=== PATIENT | male | born 1985 | race Caucasian/White ===

== ENCOUNTER 2023-03-13 20:58 | Emergency (ER) | payer OTHER, SELFPAY ==
[2023-03-13 21:10] VITALS: BP 111/60; PULSE 72; RESP 18; TEMP 36.8; O2SAT 96; BMI 33.2
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
[2023-03-13 21:30] LABS: Basophils % 0.4 %; Eosinophils # 0.2 10^3/uL (0.0-0.8); Eosinophils % 3.1 %; Hematocrit 40.8 % (42.0-52.0); Hemoglobin 13.7 g/dL (11.7-16.6); Lymphocytes # 1.7 10^3/uL (0.8-4.8); Lymphocytes % 22.7 %; Mean Corpuscular HGB Conc 33.6 g/dL (30.0-36.0); Mean Corpuscular Hemoglobin 30.6 pg (28.0-34.0); Mean Corpuscular Volume 91.1 fl (80-94); Mean Platelet Volume 10.1 fL (7.4-10.4); Monocytes # 0.5 10^3/uL (0.2-0.9); Monocytes % 6.3 %; Neutrophils # 5.15 10^3/uL (1.8-7.7); Neutrophils % 67.1 %; Nucleated Red Blood Cells % 0 %; Platelet Count 223 10^3/cmm (130-400); Red Blood Count 4.48 10^6/uL (4.1-5.3); Red Cell Distribution Width 12.5 % (12.1-15.1); White Blood Count 7.7 10^3/uL (4.0-10.0)
[2023-03-13 21:47] LABS: Alanine Aminotransferase 29 U/L (0-41); Albumin Level 4.4 g/dL (3.5-5.2); Alkaline Phosphatase 81 U/L (40-130); Anion Gap 15.3 (5-19); Aspartate Amino Transferase 22 U/L (0-40); Blood Urea Nitrogen 12 mg/dL (6-20); Calcium 8.9 mg/dL (8.5-10.5); Carbon Dioxide 23 mmol/L (22-29); Chloride 102 mmol/L (98-107); Globulin 2.4 g/dL (1.3-4.6); Glomerular Filtration Rate 67.8 mL/min (90-130); Glucose 108 mg/dL (65-115); Osmolality Calculated 284 mOsm/kg (285-295); Potassium 3.3 mmol/L (3.5-5.1); Sodium 137 mmol/L (136-145); Total Bilirubin 0.3 mg/dL (0.15-1.2); Total Protein 6.8 g/dL (6.6-8.7)
[2023-03-13 22:01] LABS: Lactate (Lactic Acid level) 2.2 mmol/L (0.5-2.2)
[2023-03-13] MEDS: iohexol 350 mg/mL 500 mL Btl (per mL) IV (22:24)
[2023-03-13] MEDS: sodium chloride 0.9% 1,000 ML 999 ML IV (22:30)
[2023-03-13] MEDS: morphine 4 mg/mL SDV 1 mL 2 MG IVP (22:30)
[2023-03-13 22:59] VITALS: BP 132/99; RESP 84; O2SAT 97
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
[2023-03-13 23:49] VITALS: BP 127/90; PULSE 74; RESP 20; O2SAT 97
[2023-03-14] MEDS: morphine 4 mg/mL SDV 1 mL 2 MG IVP (00:58)
[2023-03-14 01:20] VITALS: BP 114/73; PULSE 73; RESP 18; O2SAT 95
[2023-03-14] MEDS: HYDROmorphone 1 mg/mL INJ 1 mL 0.5 MG IVP (01:48)
[2023-03-14 01:49] VITALS: BP 115/73; PULSE 73; RESP 18; O2SAT 95
== END 2023-03-14 01:50 | disposition intermediate care facility (04) ==
PROVIDERS: Emergency Provider Emergency Medicine; Family Provider Family Medicine; PCP Family Medicine
DX: S37.061A Major laceration of right kidney, initial encounter (principal); V86.69XA Passenger of other special all-terrain or other off-road motor vehicle injured in nontraffic accident, initial encounter
CPT/HCPCS: 70450; 71260; 72125; 74177; 80053; 83605; 85025; 86850; 86900; 96361; 96374; 96375; 96376; 99285; 99291; J1170; J2270; J7030; Q9967

== ENCOUNTER 2023-09-23 10:14 | Outpatient (CLI) | payer OTHER, SELFPAY ==
[2023-09-23 10:25] LABS: Basophils % 0.2 %; Eosinophils # 0.1 10^3/uL (0.0-0.8); Eosinophils % 2.2 %; Hematocrit 31.2 % (37-53); Lymphocytes # 0.2 10^3/uL (0.8-4.8); Lymphocytes % 2.7 %; Mean Corpuscular Hemoglobin 33.7 pg (27-33); Mean Platelet Volume 9.8 fL (7.4-10.4); Monocytes # 0.4 10^3/uL (0.2-0.9); Monocytes % 6.9 %; Neutrophils # 5.22 10^3/uL (1.8-7.7); Neutrophils % 83.8 %; Nucleated Red Blood Cells % 0 %; Platelet Count 162 10^3/cmm (157-399); Red Blood Count 3.06 10^6/uL (3.85-5.65); Red Cell Distribution Width 15.9 % (12.1-15.1); White Blood Count 6.23 10^3/uL (3.29-11.43)
[2023-09-23 10:47] LABS: Albumin Level 4.4 g/dL (3.5-5.2); Blood Urea Nitrogen 20 mg/dL (6-20); Calcium 9.4 mg/dL (8.5-10.5); Carbon Dioxide 20 mmol/L (22-29); Chloride 109 mmol/L (98-107); Glomerular Filtration Rate 56.4 mL/min (90-130); Glucose 97 mg/dL (65-115); Magnesium 1.6 mg/dL (1.7-2.3); Phosphorus 1.4 mg/dL (2.5-4.5); Sodium 138 mmol/L (136-145)
[2023-09-23 11:02] LABS: Anion Gap 13.4 (5-19); Potassium 4.4 mmol/L (3.5-5.1)
== END 2023-09-23 10:15 | disposition home or self-care (01) ==
PROVIDERS: PCP Family Medicine; Visit Provider Transplant Surgery
DX: Z01.89 Encounter for other specified special examinations (principal)
CPT/HCPCS: 80069; 80197; 83735; 85025

== ENCOUNTER 2023-09-27 09:58 | Outpatient (CLI) | payer OTHER, SELFPAY ==
[2023-09-27 10:19] LABS: Basophils % 0.2 %; Eosinophils # 0.1 10^3/uL (0.0-0.8); Eosinophils % 0.8 %; Lymphocytes # 0.3 10^3/uL (0.8-4.8); Lymphocytes % 3.2 %; Mean Corpuscular HGB Conc 33.2 g/dL (30-55); Mean Corpuscular Hemoglobin 34.3 pg (27-33); Mean Corpuscular Volume 103.3 fl (82-101); Mean Platelet Volume 9.6 fL (7.4-10.4); Monocytes # 0.3 10^3/uL (0.2-0.9); Monocytes % 2.8 %; Neutrophils # 9.09 10^3/uL (1.8-7.7); Neutrophils % 89.6 %; Nucleated Red Blood Cells % 0 %; Platelet Count 223 10^3/cmm (157-399); Red Cell Distribution Width 16.1 % (12.1-15.1); White Blood Count 10.13 10^3/uL (3.29-11.43)
[2023-09-27 10:38] LABS: Albumin Level 4.3 g/dL (3.5-5.2); Anion Gap 15.6 (5-19); Blood Urea Nitrogen 19 mg/dL (6-20); Carbon Dioxide 17 mmol/L (22-29); Chloride 112 mmol/L (98-107); Glomerular Filtration Rate 56.4 mL/min (90-130); Glucose 117 mg/dL (65-115); Magnesium 1.3 mg/dL (1.7-2.3); Phosphorus 1.8 mg/dL (2.5-4.5); Potassium 4.6 mmol/L (3.5-5.1); Sodium 140 mmol/L (136-145)
[2023-09-27 10:39] LABS: Urine Creatinine 102 mg/dL (39-259); Urine Protein Random 13 mg/dL
[2023-09-27 10:40] LABS: UPRO/UCREAT Ratio 0.13 mg/mg CR
== END 2023-09-27 09:59 | disposition home or self-care (01) ==
LOC: LAB 10:00
PROVIDERS: PCP Family Medicine; Visit Provider Transplant Surgery
DX: Z01.89 Encounter for other specified special examinations (principal)
CPT/HCPCS: 80069; 80197; 82570; 83735; 84156; 85025

== ENCOUNTER 2023-10-01 17:27 | Outpatient (CLI) | payer OTHER, SELFPAY ==
[2023-09-30 10:05] LABS: Basophils % 0.2 %; Eosinophils # 0.1 10^3/uL (0.0-0.8); Eosinophils % 1.2 %; Hematocrit 32.5 % (37-53); Lymphocytes # 0.4 10^3/uL (0.8-4.8); Lymphocytes % 4.2 %; Mean Corpuscular HGB Conc 32.3 g/dL (30-55); Mean Corpuscular Hemoglobin 34.2 pg (27-33); Mean Corpuscular Volume 105.9 fl (82-101); Mean Platelet Volume 9.5 fL (7.4-10.4); Monocytes # 0.3 10^3/uL (0.2-0.9); Monocytes % 2.5 %; Neutrophils # 8.98 10^3/uL (1.8-7.7); Neutrophils % 89.4 %; Nucleated Red Blood Cells % 0 %; Platelet Count 217 10^3/cmm (157-399); Red Blood Count 3.07 10^6/uL (3.85-5.65); Red Cell Distribution Width 15.9 % (12.1-15.1); White Blood Count 10.04 10^3/uL (3.29-11.43)
[2023-09-30 10:30] LABS: Albumin Level 4.4 g/dL (3.5-5.2); Anion Gap 13.5 (5-19); Blood Urea Nitrogen 24 mg/dL (6-20); Calcium 9.1 mg/dL (8.5-10.5); Carbon Dioxide 21 mmol/L (22-29); Chloride 108 mmol/L (98-107); Glomerular Filtration Rate 61.5 mL/min (90-130); Glucose 93 mg/dL (65-115); Magnesium 1.2 mg/dL (1.7-2.3); Phosphorus 1.5 mg/dL (2.5-4.5); Potassium 4.5 mmol/L (3.5-5.1); Sodium 138 mmol/L (136-145)
== END 2023-10-01 17:28 | disposition home or self-care (01) ==
LOC: LAB 17:32
PROVIDERS: PCP Family Medicine; Visit Provider Transplant Surgery
DX: Z48.22 Encounter for aftercare following kidney transplant (principal)
CPT/HCPCS: 80069; 80197; 83735; 85025

== ENCOUNTER 2023-10-04 09:00 | Outpatient (CLI) | payer OTHER, SELFPAY ==
[2023-10-04 09:35] LABS: Basophils % 0.2 %; Eosinophils # 0.1 10^3/uL (0.0-0.8); Eosinophils % 0.9 %; Hematocrit 31.3 % (37-53); Lymphocytes # 0.3 10^3/uL (0.8-4.8); Lymphocytes % 5.9 %; Mean Corpuscular HGB Conc 31.9 g/dL (30-55); Mean Corpuscular Hemoglobin 33.6 pg (27-33); Mean Platelet Volume 9.7 fL (7.4-10.4); Monocytes # 0.1 10^3/uL (0.2-0.9); Monocytes % 2.3 %; Neutrophils # 4.88 10^3/uL (1.8-7.7); Nucleated Red Blood Cells % 0 %; Platelet Count 171 10^3/cmm (157-399); Red Blood Count 2.98 10^6/uL (3.85-5.65); Red Cell Distribution Width 15.5 % (12.1-15.1); White Blood Count 5.55 10^3/uL (3.29-11.43)
[2023-10-04 10:00] LABS: Albumin Level 4.4 g/dL (3.5-5.2); Anion Gap 14.6 (5-19); Blood Urea Nitrogen 19 mg/dL (6-20); Calcium 9.1 mg/dL (8.5-10.5); Carbon Dioxide 22 mmol/L (22-29); Chloride 111 mmol/L (98-107); Glomerular Filtration Rate 56.4 mL/min (90-130); Glucose 95 mg/dL (65-115); Magnesium 1.3 mg/dL (1.7-2.3); Phosphorus 2.8 mg/dL (2.5-4.5); Potassium 4.6 mmol/L (3.5-5.1); Sodium 143 mmol/L (136-145)
== END 2023-10-04 09:01 | disposition home or self-care (01) ==
LOC: LAB 12-13 09:46
PROVIDERS: PCP Family Medicine; Visit Provider Transplant Surgery
DX: Z48.22 Encounter for aftercare following kidney transplant (principal)
CPT/HCPCS: 80069; 80197; 83735; 85025

== ENCOUNTER 2023-10-08 09:16 | Outpatient (CLI) | payer OTHER, SELFPAY ==
[2023-10-08 09:40] LABS: Basophils % 0.2 %; Eosinophils # 0.1 10^3/uL (0.0-0.8); Eosinophils % 0.8 %; Hematocrit 31.8 % (37-53); Lymphocytes # 0.4 10^3/uL (0.8-4.8); Lymphocytes % 6.7 %; Mean Corpuscular HGB Conc 32.1 g/dL (30-55); Mean Corpuscular Hemoglobin 34.1 pg (27-33); Mean Corpuscular Volume 106.4 fl (82-101); Mean Platelet Volume 9.5 fL (7.4-10.4); Monocytes # 0.1 10^3/uL (0.2-0.9); Monocytes % 2.2 %; Neutrophils # 5.16 10^3/uL (1.8-7.7); Neutrophils % 86.7 %; Nucleated Red Blood Cells % 0 %; Platelet Count 150 10^3/cmm (157-399); Red Blood Count 2.99 10^6/uL (3.85-5.65); White Blood Count 5.95 10^3/uL (3.29-11.43)
[2023-10-08 10:00] LABS: Urine Creatinine 91 mg/dL (39-259); Urine Protein Random 11 mg/dL
[2023-10-08 10:01] LABS: UPRO/UCREAT Ratio 0.12 mg/mg CR
[2023-10-08 10:21] LABS: Albumin Level 4.3 g/dL (3.5-5.2); Anion Gap 13.6 (5-19); Blood Urea Nitrogen 19 mg/dL (6-20); Calcium 9.3 mg/dL (8.5-10.5); Carbon Dioxide 23 mmol/L (22-29); Chloride 108 mmol/L (98-107); Glomerular Filtration Rate 56.4 mL/min (90-130); Glucose 117 mg/dL (65-115); Magnesium 1.2 mg/dL (1.7-2.3); Phosphorus 2.2 mg/dL (2.5-4.5); Potassium 4.6 mmol/L (3.5-5.1); Sodium 140 mmol/L (136-145)
== END 2023-10-08 09:17 | disposition home or self-care (01) ==
LOC: LAB 09:17
PROVIDERS: PCP Family Medicine; Visit Provider Transplant Surgery
DX: Z48.22 Encounter for aftercare following kidney transplant (principal)
CPT/HCPCS: 80069; 80197; 82570; 83735; 84156; 85025

== ENCOUNTER 2023-10-11 09:04 | Outpatient (CLI) | payer OTHER, SELFPAY ==
[2023-10-11 09:15] LABS: Basophils % 0.4 %; Eosinophils % 0.8 %; Hematocrit 31.7 % (37-53); Lymphocytes # 0.3 10^3/uL (0.8-4.8); Lymphocytes % 5.8 %; Mean Corpuscular HGB Conc 33.1 g/dL (30-55); Mean Corpuscular Hemoglobin 34.4 pg (27-33); Mean Corpuscular Volume 103.9 fl (82-101); Mean Platelet Volume 9.7 fL (7.4-10.4); Monocytes # 0.1 10^3/uL (0.2-0.9); Monocytes % 2.4 %; Neutrophils # 4.62 10^3/uL (1.8-7.7); Neutrophils % 86.8 %; Nucleated Red Blood Cells % 0 %; Platelet Count 155 10^3/cmm (157-399); Red Blood Count 3.05 10^6/uL (3.85-5.65); Red Cell Distribution Width 14.5 % (12.1-15.1); White Blood Count 5.32 10^3/uL (3.29-11.43)
[2023-10-11 09:41] LABS: Albumin Level 4.5 g/dL (3.5-5.2); Anion Gap 13.7 (5-19); Blood Urea Nitrogen 30 mg/dL (6-20); Calcium 9.6 mg/dL (8.5-10.5); Carbon Dioxide 23 mmol/L (22-29); Chloride 110 mmol/L (98-107); Glomerular Filtration Rate 42.2 mL/min (90-130); Glucose 105 mg/dL (65-115); Magnesium 1.3 mg/dL (1.7-2.3); Phosphorus 2.4 mg/dL (2.5-4.5); Potassium 4.7 mmol/L (3.5-5.1); Sodium 142 mmol/L (136-145)
== END 2023-10-11 09:05 | disposition home or self-care (01) ==
LOC: LAB 09:04
PROVIDERS: PCP Family Medicine; Visit Provider Internal Medicine
DX: Z48.22 Encounter for aftercare following kidney transplant (principal)
CPT/HCPCS: 80069; 80197; 83735; 85025

== ENCOUNTER 2023-10-14 09:43 | Outpatient (CLI) | payer OTHER, SELFPAY ==
[2023-10-14 09:40] LABS: Basophils % 0.4 %; Eosinophils # 0.1 10^3/uL (0.0-0.8); Hematocrit 31.8 % (37-53); Lymphocytes # 0.3 10^3/uL (0.8-4.8); Lymphocytes % 6.6 %; Mean Corpuscular HGB Conc 32.4 g/dL (30-55); Mean Corpuscular Hemoglobin 34.4 pg (27-33); Mean Corpuscular Volume 106.4 fl (82-101); Mean Platelet Volume 9.9 fL (7.4-10.4); Monocytes # 0.2 10^3/uL (0.2-0.9); Monocytes % 3.5 %; Neutrophils # 4.11 10^3/uL (1.8-7.7); Neutrophils % 85.4 %; Nucleated Red Blood Cells % 0 %; Platelet Count 169 10^3/cmm (157-399); Red Blood Count 2.99 10^6/uL (3.85-5.65); Red Cell Distribution Width 14.1 % (12.1-15.1); White Blood Count 4.82 10^3/uL (3.29-11.43)
[2023-10-14 09:59] LABS: Albumin Level 4.4 g/dL (3.5-5.2); Anion Gap 12.6 (5-19); Blood Urea Nitrogen 26 mg/dL (6-20); Calcium 9.2 mg/dL (8.5-10.5); Carbon Dioxide 22 mmol/L (22-29); Chloride 112 mmol/L (98-107); Glomerular Filtration Rate 52.1 mL/min (90-130); Glucose 93 mg/dL (65-115); Magnesium 1.3 mg/dL (1.7-2.3); Phosphorus 1.3 mg/dL (2.5-4.5); Potassium 4.6 mmol/L (3.5-5.1); Sodium 142 mmol/L (136-145)
[2023-10-14 10:13] LABS: Urine Creatinine 64 mg/dL (39-259); Urine Protein Random 7 mg/dL
[2023-10-14 10:14] LABS: UPRO/UCREAT Ratio 0.11 mg/mg CR
== END 2023-10-14 09:44 | disposition home or self-care (01) ==
LOC: LAB 09:44
PROVIDERS: PCP Family Medicine; Visit Provider Transplant Surgery
DX: Z48.22 Encounter for aftercare following kidney transplant (principal)
CPT/HCPCS: 80069; 80197; 82570; 83735; 84156; 85025

== ENCOUNTER 2023-10-22 10:27 | Outpatient (CLI) | payer OTHER, SELFPAY ==
[2023-10-22 10:34] LABS: Basophils % 0.4 %; Eosinophils % 0.6 %; Hematocrit 33.8 % (37-53); Lymphocytes # 0.4 10^3/uL (0.8-4.8); Lymphocytes % 6.5 %; Mean Corpuscular HGB Conc 32.8 g/dL (30-55); Mean Corpuscular Hemoglobin 34.5 pg (27-33); Mean Platelet Volume 9.8 fL (7.4-10.4); Monocytes # 0.2 10^3/uL (0.2-0.9); Neutrophils # 4.61 10^3/uL (1.8-7.7); Neutrophils % 85.2 %; Nucleated Red Blood Cells % 0 %; Platelet Count 210 10^3/cmm (157-399); Red Blood Count 3.22 10^6/uL (3.85-5.65); Red Cell Distribution Width 13.1 % (12.1-15.1)
[2023-10-22 10:58] LABS: Albumin Level 4.5 g/dL (3.5-5.2); Anion Gap 13.4 (5-19); Blood Urea Nitrogen 23 mg/dL (6-20); Calcium 9.2 mg/dL (8.5-10.5); Carbon Dioxide 20 mmol/L (22-29); Chloride 109 mmol/L (98-107); Glomerular Filtration Rate 52.1 mL/min (90-130); Glucose 102 mg/dL (65-115); Magnesium 1.5 mg/dL (1.7-2.3); Phosphorus 1.4 mg/dL (2.5-4.5); Potassium 4.4 mmol/L (3.5-5.1); Sodium 138 mmol/L (136-145)
== END 2023-10-22 10:28 | disposition home or self-care (01) ==
PROVIDERS: PCP Family Medicine; Visit Provider Transplant Surgery
DX: Z48.22 Encounter for aftercare following kidney transplant (principal)
CPT/HCPCS: 80069; 80197; 83735; 85025